=== PATIENT | female | born 1975 | race African-American/Black ===

== ENCOUNTER 2024-09-03 10:09 | Emergency (ER) | payer SELFPAY ==
--- NOTE | 2024-09-03 10:44 | ED.GENMED ---
ED Provider Triage
<Chava Curiel PA-C - Last Filed: 09/03/24 10:45>
-
Patient seen by provider in Triage?: Seen in Triage
Attestation: A medical screening examination has been initiated by a qualified medical provider. Based on the assessment performed at this time, it has been determined that an emergent medical condition may exist and the patient has been informed
that further medical evaluation and possible additional diagnostic testing may be needed.
HPI: 48-year-old female presents for evaluation of left knee pain for the past 2 to 3 days. Denies any acute fall or sudden injury. Works in a dementia care unit. Having difficulty ambulating
GENERAL: Alert , in no apparent distress
EYE: No visual abnormalities.
NECK: Trachea midline
ENT: No visible abnormalities.
LUNGS: No acute respiratory distress
NEUROLOGICAL: Alert and oriented
SKIN: Skin intact. No visible changes.
MUSCULOSKELETAL: Moving extremities normally
PSYCH: Normal and appropriate interaction.
This is a medical evaluation conducted in person to initiate diagnostic evaluation and provide initial therapeutics. Please see further documentation by the treating clinician.
History of Present Illness
<Chava Curiel PA-C - Last Filed: 09/03/24 10:45>
General
Chief Complaint: Musculo-Skeletal Complaint
Time Seen by Provider: 09/03/24 12:04
<Kaleb Pham DO - Last Filed: 09/03/24 12:29>
General
Source: patient
Exam Limitations: none
Nursing documentation reviewed up to this point in time: agreed with
History of Present Illness
History of Present Illness:
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
Review of Systems
<Kaleb Pham DO - Last Filed: 09/03/24 12:29>
Review of Systems
All Other Systems: Not applicable
Constitutional: Denies fever
Respiratory: Denies trouble breathing
Musculoskeletal: Reports joint pain and joint swelling
Phy Exam
<Kaleb Pham DO - Last Filed: 09/03/24 12:29>
Physical Exam
Physical Exam:
Physical Exam
General: no apparent distress, not acutely ill
Neck: No jaundice
Heart: Regular
Lungs: no acute respiratory distress.
Neuro: alert and oriented. no focal neurological deficits
Skin: no rash
Psychiatric: well kept. interactive and cooperative
Extremities: Tender with some swelling of the left knee no crepitance no calf pain no obvious ligamentous laxity
Course
<Chava Curiel PA-C - Last Filed: 09/03/24 10:45>
Orders/Labs/Results
Orders:
Orders
09/03/24 10:44
Ketorolac [Toradol] 30 mg IM NOW STA
CR Knee - Left 4 Or More View* Urgent
Comment:
Reason For Exam: injury
09/03/24 12:20
Rony Wrap Left-Treatment ONCE
Vital Signs
Initial and Last Documented VS:
Initial Vital Signs
Temp Pulse Resp Pulse Ox
98.7 F 82 16 98
09/03/24 10:41 09/03/24 10:41 09/03/24 10:41 09/03/24 10:41
Last Documented Vital Signs
Temp Pulse Resp Pulse Ox
98.7 F 82 16 98
09/03/24 10:41 09/03/24 10:41 09/03/24 10:41 09/03/24 10:41
<DO Hermilo Donaldson Last Filed: 09/03/24 12:29>
Orders/Labs/Results
Orders:
Orders
09/03/24 10:44
Ketorolac [Toradol] 30 mg IM NOW STA
CR Knee - Left 4 Or More View* Urgent
Comment:
Reason For Exam: injury
09/03/24 12:20
Rony Wrap Left-Treatment ONCE
Vital Signs
Initial and Last Documented VS:
Initial Vital Signs
Temp Pulse Resp Pulse Ox
98.7 F 82 16 98
09/03/24 10:41 09/03/24 10:41 09/03/24 10:41 09/03/24 10:41
Last Documented Vital Signs
Temp Pulse Resp Pulse Ox
98.7 F 82 16 98
09/03/24 10:41 09/03/24 10:41 09/03/24 10:41 09/03/24 10:41
<Kaleb Pham DO - Last Filed: 09/03/24 12:29>
MDM/Problems Addressed
Differential Diagnosis Includes:
Arthritis overuse ligamentous injury strain strain occult fracture
MDM/Problems Addressed:
Knee pain no signs of DVT by history and physical
Chronic conditions affecting care: HTN
Acute Exacerbation and/or Progression of Chronic Illness: HTN
<Kaleb Pham DO - Last Filed: 09/03/24 12:29>
*Radiology
Radiology exam reviewed: radiology read reviewed
*Pulse Oximetry
Patient hypoxic: no
*Critical Care Note
Total Time (30-74mins, 75-104mins- exclusive of procedures): Not Applicable
<Kaleb Pham DO - Last Filed: 09/03/24 12:29>
Update Note
Update Note:
Update, will start on NSAIDs, Rony wrap orthopedic PCP follow-up
ED Attending Note
<Chava Curiel PA-C - Last Filed: 09/03/24 10:45>
-
Portions of this chart may have been created with voice recognition software.� Occasional wrong word or��sound alike� substitutions may have occurred due to the inherent limitations of voice recognition software.
Discharge Plan
Departure
Patient Disposition: Home (Routine Discharge)
Date of Disposition: 09/03/24
Time of Disposition: 12:29
Patient with high blood pressure during this ER visit?: No
Condition: Good
Discharge Problem:
Acute knee pain
Instructions: Muscle and Bone Pain (DC), Knee Pain (DC), Using Cold for Pain
Prescriptions:
New
naproxen [Naprosyn] 500 mg tablet
500 mg PO BID Qty: 30 0RF
Referrals:
Rusty Polanco, DO [Family Provider] -
Phillip Garcia MD [Active] - Follow up in 5-7 days
Interventions
Interventions:
*Risk Screen - Suicide Last Done: 09/03/24 10:41
*General Assessment Last Done: 09/03/24 11:33
*Neglect/Abuse Screening Last Done: 09/03/24 10:41
ED- Fall Risk Assessment Last Done: 09/03/24 11:32
*ED COVID-19 Vaccine History Last Done: 09/03/24 11:33
ED-Musculoskeletal Assessment Last Done: 09/03/24 11:34
Discharge Date and Time
Print Language: DOMINICAN
[2024-09-03] MEDS: TORADOL 30 MG IM (10:49)
[2024-09-03 11:33] VITALS: BMI 41.2
== END 2024-09-03 12:48 | disposition home or self-care (01) ==
LOC: EMR 10:09
PROVIDERS: EMERGENCY PHYSICIAN Emergency Medicine; FAMILY PHYSICIAN Family Medicine
DX: M25.562 Pain in left knee (principal); I10 Essential (primary) hypertension
CPT/HCPCS: 99284; 96372; 73564

== ENCOUNTER → 2025-02-06 16:00 | Outpatient (REF) | payer OTHER, SELFPAY | LOC: DHSLP 16:00 | PROVIDERS: ATTENDING PHYSICIAN Student in an Organized Health Care Education/Training Program | DX: G47.33 Obstructive sleep apnea (adult) (pediatric) (principal); R09.02 Hypoxemia | CPT/HCPCS: 95800 ==